=== PATIENT | male | born 1960 | race Caucasian/White ===

== ENCOUNTER 2016-12-27 11:30 | Outpatient (CLI) ==
[2015-12-31 09:00] VITALS: BMI 23.7
[2016-12-27 13:59] LABS: BASOPHILS # (AUTO) 0.1 K/uL (0-0.2); BASOPHILS % (AUTO) 0.8 % (0.0-3.0); EOSINOPHILS # (AUTO) 0.2 K/ul (0.0-0.7); EOSINOPHILS % (AUTO) 3.1 % (0.0-7.0); HEMATOCRIT 45.4 % (42.0-52.0); HEMOGLOBIN 15.2 g/dl (14.0-18.0); IMMATURE GRANULOCYTE % (AUTO) 0.5 % (0.0-5.0); LYMPHOCYTES # (AUTO) 2.4 K/uL (0.60-3.4); LYMPHOCYTES % (AUTO) 31.1 (10.0-50.0); MEAN CORPUSCULAR HEMOGLOBIN 29.9 pg (27.0-31.0); MEAN CORPUSCULAR HGB CONC 33.5 (31.8-35.4); MEAN CORPUSCULAR VOLUME 89.4 fl (80.0-94.0); MONOCYTES # (AUTO) 0.7 K/uL (0.4-2.0); MONOCYTES % (AUTO) 9.1 (0-10); NEUTROPHILS # (AUTO) 4.3 K/ul (2.0-6.9); NEUTROPHILS % (AUTO) 55.4; PLATELET COUNT 267 10^3/uL (140-440); RED BLOOD COUNT 5.08 10^6/ul (4.70-6.10); WHITE BLOOD COUNT 7.68 K/ul (4.2-10.2)
[2016-12-27 14:28] LABS: ALBUMIN 3.8 g/dL (3.4-5.0); ALBUMIN/GLOBULIN RATIO 1.19; ANION GAP 13.2; BILIRUBIN,TOTAL 0.56 mg/dL (0.00-1.20); BUN/CREATININE RATIO 18.84; CALCIUM 9.2 mg/dL (8.2-10.2); CHOL/HDL RATIO 3.8 (4.5-6.4); CREATININE 0.69 mg/dL (0.60-1.10); POTASSIUM 4.2 mmol/L (3.5-5.1)
== END 2016-12-27 11:31 | disposition home or self-care (01) ==
LOC: LAB 11:30
PROVIDERS: ATTEND Nurse Practitioner Family
DX: J44.9 Chronic obstructive pulmonary disease, unspecified (principal); E75.6 Lipid storage disorder, unspecified; F17.200 Nicotine dependence, unspecified, uncomplicated
CPT/HCPCS: 36415; 80053; 80061; 85025

== ENCOUNTER 2018-01-13 11:21 | Outpatient (CLI) ==
[2015-12-31 09:00] VITALS: BMI 23.7
--- NOTE | 2018-01-13 11:48 | DI ---
EXAM: Chest, two views, 01/13/2018 HISTORY: Tobacco use COMPARISON: 03/25/1816 FINDINGS / IMPRESSION: Cardiomediastinal countours appear stable. There is no focal pulmonary conso lidation. No pleural effusion or pneumothorax. No acute cardiopulmonary process.
== END 2018-01-13 11:22 | disposition home or self-care (01) ==
LOC: LAB 11:21
PROVIDERS: ATTEND Nurse Practitioner Family
DX: J44.9 Chronic obstructive pulmonary disease, unspecified (principal); R73.9 Hyperglycemia, unspecified; Z00.00 Encounter for general adult medical examination without abnormal findings; Z12.5 Encounter for screening for malignant neoplasm of prostate; Z72.0 Tobacco use
CPT/HCPCS: 36415; 80053; 80061; 83036; 84443; 85025

== ENCOUNTER 2018-01-29 12:17 | Emergency (ER) | payer OTHER ==
[2018-01-29 12:21] VITALS: BP 116/79; TEMP 97.9; BMI 22.4
--- NOTE | 2018-01-29 12:34 | ED.PDOC ---
General ED Provider: Dr. RENNY OSUNA Chief Complaint: Eye Problem Stated Complaint: Patient is a 57 year old male who states that he was mowing the lawn two days ago then yesterday noticed that his eyes especially the left was matted shut took some time to pry it open. Has some light sensitity. Denies any exposure to pink eye. Time Seen by Physician: 12:32 Mode of Arrival: Walk-In Information Source: Patient Exam Limitations: No limitations Primary Care Provider: VIGNESH GUILLEN Nursing and Triage Documentation Reviewed and Agree: Yes Reviewed sepsis parameters & appropriate labs ordered?: Yes System Inflammatory Response Syndrome: Not Applicable Sepsis Protocol: For patient's 13 years and over: Temp is 96.8 and below OR 101 and greater Pulse >90 BPM Resp >20/minute Acutely Altered Mental Status Are patient's symptoms suggestive of a new infection, such as: -Pneumonia -Skin, Soft Tissue -Endocarditis -UTI -Bone, Joint Infection -Implantable Device -Acute Abdominal Infection -Wound Infection -Meningitis -Blood Stream Catheter Infection -Unknown System Inflammatory Response Syndrome: Not Applicable EENT Complaint Exam - Eye Complaint/Exam Onset/Duration: 3 days Symptoms Are: Still present Timing: Constant Initial Severity: Moderate Current Severity: Severe Location: Bilateral Character: Reports: Dull Aggravating: Reports: Light Alleviating: Reports: None Associated Signs and Symptoms: Reports: Photophobia, Purulent drainage. Denies : Vision impairment, Fever, Swelling Related History: Reports: Environmental. Denies: Similar episode, Foreign body , Trauma, Glaucoma, Meds used, Drops used Eye Surgical History: Reports: None Penetrating Injury Risk Factors: None Globe Rupture Risk Factors: None Acute Glaucoma Risk Factors: Eye Inflammation Optic Artery Occlusion Risk Factors: None Visual Field: Normal Extraocular Movement: Normal Orbit Findings: Normal Globe Findings: Intact Lid Findings: Erythema Conjunctival Findings: Red Corneal Findings: Clear Fundi: Not visualized Differential Diagnoses: Conjunctivitis Review of Systems - Review Of Systems Constitutional: Reports: No symptoms Eyes: Reports: Pain, Photophobia Ears, Nose, Mouth, Throat: Reports: No symptoms Respiratory: Reports: No symptoms Cardiac: Reports: No symptoms GI: Reports: No symptoms : Reports: No symptoms Musculoskeletal: Reports: No symptoms Skin: Reports: No symptoms Neurological: Reports: No symptoms Endocrine: Reports: No symptoms Hematologic/Lymphatic: Reports: No symptoms All Other Systems: Reviewed and Negative Past Medical History - Past Medical History Previously Healthy: Yes Endocrine: Reports: None Cardiovascular: Reports: None Respiratory: Reports: None Hematological: Reports: None Gastrointestinal: Reports: None Genitourinary: Reports: None Neuro/Psych: Reports: None Musculoskeletal: Reports: None Cancer: Reports: None - Surgical History General Surgical History: Reports: Unknown - Family History Family History: Reports: Unknown - Social History Smoking Status: Current every day smoker, Heavy tobacco smoker Hx Substance Use: No Alcohol Screening: None - Immunizations Tetanus Shot up to Date: No Physical Exam - Physical Exam Appearance: Ill-appearing, Well-nourished Ill-appearing: Mild Pain Distress: Mild Eyes: Conjunctiva inflammed ENT: Ears normal, Nose normal, Oropharynx normal Neck: Supple Respiratory: Airway patent, Breath sounds clear, Breath sounds equal, Respirations nonlabored Cardiovascular: RRR, Pulses normal, No rub, No murmur GI/: Soft, Nontender, No masses, Bowel sounds normal, No Organomegaly Musculoskeletal: Normal strength, ROM intact, No edema Skin: Warm, Dry, Normal color Neurological: Sensation intact, Motor intact, Cranial nerves intact, Alert, Oriented Psychiatric: Affect appropriate, Mood appropriate Critical Care Note - Critical Care Note Total Time (mins): 0 Course - Course Vital Signs: Temp Pulse Resp BP Pulse Ox 01/29/18 12:17 97.9 F 70 20 116/79 95 Departure - Departure Time of Disposition: 12:34 Disposition: HOME SELF-CARE Discharge Problem: Conjunctivitis Qualifiers: Conjunctivitis type: acute Acute conjunctivitis type: bacterial Laterality: bilateral Qualified Code(s): H10.33 - Unspecified acute conjunctivitis, bilateral Instructions: Conjunctivitis (ED) Condition: Fair Pt referred to PMD for follow-up: Yes IPMP verified?: No Additional Instructions: Use eye drops to both eyes every two hours while awake for 24 hours then every 4 hours for 9 days. Follow up with the eye doctor in 1-2 days. Prescriptions: Gentamicin Sulfate Opth [Gentak Opth Gogo] 2 drop OP Q4HR #10 drops Allergies/Adverse Reactions: Allergies aspirin Allergy (Mild, Unverified 01/29/18 12:21) stomach problems ibuprofen Allergy (Mild, Unverified 01/29/18 12:21) stomach problems Home Medications: Ambulatory Orders Gentamicin Sulfate Opth [Gentak Opth Gogo] 2 drop OP Q4HR #10 drops 01/29/18 Disposition Discussed With: Patient, Family
== END 2018-01-29 12:51 | disposition home or self-care (01) ==
LOC: ED 12:17
DX: H10.33 Unspecified acute conjunctivitis, bilateral (principal); F17.210 Nicotine dependence, cigarettes, uncomplicated
CPT/HCPCS: 99282

== ENCOUNTER 2018-02-14 11:50 | Outpatient (CLI) | END 2018-02-14 11:51 | disposition home or self-care (01) | LOC: RHC-LAB 11:50 | PROVIDERS: ATTEND Emergency Medicine | DX: J06.9 Acute upper respiratory infection, unspecified (principal) | CPT/HCPCS: 87651; 87804 ==

== ENCOUNTER 2018-03-17 09:01 | Outpatient (CLI) | END 2018-03-17 09:02 | disposition home or self-care (01) | LOC: CAR 09:01 | PROVIDERS: ATTEND Nurse Practitioner Family | DX: R06.02 Shortness of breath (principal); R05 Cough; Z72.0 Tobacco use ==

== ENCOUNTER 2018-04-25 11:20 | Outpatient (CLI) | END 2018-04-25 11:21 | disposition home or self-care (01) | LOC: LAB 11:20 | PROVIDERS: ATTEND Nurse Practitioner Family | DX: E78.1 Pure hyperglyceridemia (principal) | CPT/HCPCS: 36415; 80053; 80061 ==

== ENCOUNTER 2018-07-12 09:01 | Emergency (ER) ==
[2018-07-12 09:05] VITALS: BP 151/85; TEMP 98.3; BMI 21.7
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
--- NOTE | 2018-07-12 11:51 | CT ---
Exam: CT of the chest without intravenous contrast with 3-D MIP reformatted images. Comparison: Chest x-ray performed 01/13/2018. Reason for exam: Blunt chest wall injury. FINDINGS: No pneumothorax, pleural effusion, or focal consolidation. The cardiac silhouette is not enlarged. The aorta is normal in course and caliber. No displaced rib fractures are seen. The martin um is intact. Degenerative disease is seen in the thoracic spine. There is mild thickening of the proximal gastric wall. Multiple stones are seen within the gallbladd er. Impression: 1. No acute traumatic findings are seen within the thorax. 2. Cholelithiasis. If clinical concern exists for cholecystitis, ultrasound may be performed for fu rther characterization
== END 2018-07-12 11:58 | disposition home or self-care (01) ==
LOC: ED 09:01
DX: R07.89 Other chest pain (principal); W50.0XXA Accidental hit or strike by another person, initial encounter; F17.210 Nicotine dependence, cigarettes, uncomplicated
CPT/HCPCS: 99283